=== PATIENT | male | born 1970 | race African-American/Black ===

== ENCOUNTER 2016-09-08 20:35 | Emergency (ER) | payer MEDICAID ==
[~2016-09-08] VITALS: Ht 177.8 cm; Wt 100.0 kg
[~2016-09-08 20:35] MED LIST: OLAN10TA3 PO; SERT50TA12 PO
[2016-09-09 02:03] VITALS: BP 137/76
== END 2016-09-09 02:07 | disposition home or self-care (01) ==
LOC: EDBD → EMS 20:38 → EDBD 20:38 → EEVIPCON 20:38 → EMS 09-09 02:07
DX: F20.9 Schizophrenia, unspecified (principal); F17.210 Nicotine dependence, cigarettes, uncomplicated; F19.90 Other psychoactive substance use, unspecified, uncomplicated; F12.90 Cannabis use, unspecified, uncomplicated; Z59.0 Homelessness
CPT/HCPCS: 93005; 99284; 99406

== ENCOUNTER 2016-09-09 04:39 | Inpatient (IN) | payer MEDICAID ==
[~2016-09-09] VITALS: Ht 185.4 cm; Wt 78.7 kg
[2016-09-09] MEDS ORDERED: DiphenhydrAMINE HCL 50 MG/ML VIAL IM ONE (05:00)
[2016-09-09] MEDS ORDERED: LORazepam 2 MG/ML VIAL IM ONE (05:00)
[2016-09-09] MEDS ORDERED: HALOPERIDOL LACTATE 5 MG/ML VIAL IM ONE (05:00)
[2016-09-09 05:45] LABS: BASOPHILS # (AUTO) 0.02 K/uL (0.00-0.20); BASOPHILS % (AUTO) 0.4 % (0.0-2.0); EOSINOPHILS # (AUTO) 0.06 K/uL (0.00-0.70); EOSINOPHILS % (AUTO) 1.19 % (1.0-6.0); HEMATOCRIT 39.3 % (41-53); HEMOGLOBIN 13.4 g/dL (13.5-17.5); LYMPHOCYTES # (AUTO) 1.1 K/uL (1.0-4.8); LYMPHOCYTES % (AUTO) 21.9 % (22.0-44.0); MEAN CORPUSCULAR HEMOGLOBIN 29.8 pg (26.0-34.0); MEAN CORPUSCULAR VOLUME 88 fL (80-100); MONOCYTES # (AUTO) 0.7 K/uL (0.1-1.0); MONOCYTES % (AUTO) 13.5 % (2.0-9.0); PLATELET COUNT (AUTO) 172 K/uL (150-450); RED BLOOD CELL COUNT(AUTO) 4.47 MIL/uL (4.50-5.90); RED CELL DISTRIBUTION WIDTH 14.3 % (11.5-14.5); WHITE BLOOD COUNT (AUTO) 4.8 K/uL (4.5-11.0)
[2016-09-09 06:25] LABS: ANION GAP 8 mmol/L (8-16); CALCIUM, TOTAL 9.1 mg/dL (8.8-10.5); CARBON DIOXIDE 30 mmol/L (22-29); CHLORIDE 105 mmol/L (98-107); CREATININE 1.36 mg/dL (0.60-1.30); GLOMERULAR FILTR. RATE CALC > 60 mL/min (>60); POTASSIUM 3.5 mmol/L (3.5-5.1); SODIUM SERUM 143 mmol/L (136-145); UREA NITROGEN, BLOOD 15 mg/dL (7-18)
[2016-09-09 06:31] LABS: ALANINE AMINOTRANSFERASE 40 U/L (12-78); ALBUMIN 3.8 g/dL (3.4-5.0); ASPARTATE AMINOTRANSFERASE 29 U/L (15-37); BILIRUBIN,TOTAL 0.5 mg/dL (0.1-1.0); TOTAL PROTEIN, SERUM 7.7 g/dL (6.4-8.2)
[2016-09-09] MEDS ORDERED: HALOPERIDOL 5 MG TABLET PO PRN (07:30)
[2016-09-09] MEDS ORDERED: ZOLPIDEM TARTRATE 10 MG TABLET PO PRN (07:30)
[2016-09-10 16:16] VITALS: BP 130/72
[2016-09-10] MEDS ORDERED: HALOPERIDOL LACTATE 5 MG/ML VIAL IM ONE (17:00)
[2016-09-10] MEDS ORDERED: DiphenhydrAMINE HCL 50 MG/ML VIAL IM ONE (17:00)
[2016-09-10] MEDS ORDERED: LORazepam 2 MG/ML VIAL IM ONE (17:00)
[2016-09-10] MEDS ORDERED: INFLUENZA VIRUS VACCINE QVS 2016-17 (3YR+)/PF 60 MCG/0.5 ML SYRINGE IM ONE (17:15)
[2016-09-11 08:28] VITALS: BP 112/76
[2016-09-11] MEDS ORDERED: IBUPROFEN 600 MG TABLET PO PRN (10:00)
[2016-09-11] MEDS ORDERED: BACITRACIN 28.4 GM OINTMENT TP PRN (10:00)
[2016-09-11] MEDS ORDERED: MAGNESIUM HYDROXIDE SUSPENSION 30 ML UDCUP PO PRN (10:00)
[2016-09-11] MEDS ORDERED: PETROLATUM,WHITE 71 GM JELLY TP PRN (10:00)
[2016-09-11] MEDS ORDERED: ACETAMINOPHEN 325 MG TABLET PO PRN (10:00)
[2016-09-11] MEDS ORDERED: MAG HYDROX/AL HYDROX/SIMETH ES 30 ML SUSPENSION UDCUP PO PRN (10:00)
[2016-09-11] MEDS ORDERED: ONDANSETRON HCL 4 MG TABLET PO PRN (10:00)
[2016-09-11] MEDS ORDERED: LOPERAMIDE HCL 2 MG CAPSULE PO PRN (10:00)
[2016-09-11] MEDS ORDERED: ALBUTEROL SULFATE HFA 90 MCG/PUFF 8 GM INHALER IH PRN (10:00)
[2016-09-11] MEDS ORDERED: BENZOCAINE/MENTHOL LOZENGE MM PRN (10:00)
[2016-09-11] MEDS ORDERED: CloNIDine HCL 0.1 MG TABLET PO PRN (10:00)
[2016-09-11 16:00] VITALS: BP 113/69
[2016-09-11] MEDS: LORazepam 2 MG TABLET PO PRN (17:12)
[2016-09-11] MEDS: RisperiDONE 2 MG TABLET PO SCH (17:12)
[2016-09-11] MEDS: DIVALPROEX SODIUM 500 MG DR TABLET PO SCH (17:12)
[2016-09-12 06:10] VITALS: BP 115/62
[2016-09-12] MEDS: DIVALPROEX SODIUM 500 MG DR TABLET PO SCH ×2 (09:57→17:02)
[2016-09-12] MEDS: RisperiDONE 2 MG TABLET PO SCH ×2 (09:57→17:02)
[2016-09-12] MEDS: LORazepam 2 MG TABLET PO PRN (09:57)
[2016-09-12 16:00] VITALS: BP 125/75
[2016-09-12] MEDS ORDERED: RISP2 PO (20:35)
[2016-09-12] MEDS ORDERED: DIVA500T35 PO (20:35)
[2016-09-13 07:05] VITALS: BP 118/72
[2016-09-13 08:15] VITALS: BP 101/61
[2016-09-13] MEDS: DIVALPROEX SODIUM 500 MG DR TABLET PO SCH (09:58)
[2016-09-13] MEDS: RisperiDONE 2 MG TABLET PO SCH (09:58)
== END 2016-09-13 13:00 | disposition home or self-care (01) | DRG 750 ==
LOC: EMS 04:41 → EDBD 04:41 → B3A 09-10 13:42
PROVIDERS: ADMIT Psychiatry & Neurology Psychiatry; ATTEND Psychiatry & Neurology Psychiatry
DX: F20.0 Paranoid schizophrenia (principal); J44.9 Chronic obstructive pulmonary disease, unspecified; R45.851 Suicidal ideations; F25.9 Schizoaffective disorder, unspecified; F15.10 Other stimulant abuse, uncomplicated; F12.10 Cannabis abuse, uncomplicated; F19.10 Other psychoactive substance abuse, uncomplicated; F10.10 Alcohol abuse, uncomplicated; F17.210 Nicotine dependence, cigarettes, uncomplicated; G47.00 Insomnia, unspecified; K59.00 Constipation, unspecified; Z28.21 Immunization not carried out because of patient refusal; Z59.0 Homelessness; Z71.6 Tobacco abuse counseling
CPT/HCPCS: 96372; 99291; G0480; J1200; J1630; J2060; J3535

== ENCOUNTER 2017-06-08 18:25 | Inpatient (IN) | payer MEDICAID ==
[~2017-06-08] VITALS: Ht 198.1 cm; Wt 78.2 kg
[~2017-06-08 18:25] MED LIST changes: +DIVA500T35 PO; +RISP2 PO
[2017-06-08] MEDS ORDERED: HALOPERIDOL 5 MG TABLET PO PRN (19:00)
[2017-06-08] MEDS ORDERED: ZOLPIDEM TARTRATE 10 MG TABLET PO PRN (19:00)
[2017-06-08 19:20] VITALS: BP 137/85
[2017-06-08] MEDS ORDERED: INFLUENZA VIRUS VACCINE QVS 2017-18 (3YR+)/PF 60 MCG/0.5 ML SYRINGE IM ONE (19:45)
[2017-06-08] MEDS ORDERED: PNEUMOCOCCAL VACCINE POLYVALENT 0.5 ML VIAL [PPSV23] IM ONE (19:45)
[2017-06-08] MEDS: DIVALPROEX SODIUM 500 MG DR TABLET PO SCH (20:59)
[2017-06-08] MEDS: OLANZapine 10 MG TABLET PO SCH (20:59)
[2017-06-09 06:38] VITALS: BP 111/64
[2017-06-09] MEDS: SERTRALINE HCL 50 MG TABLET PO SCH (08:13)
[2017-06-09] MEDS: DIVALPROEX SODIUM 500 MG DR TABLET PO SCH ×2 (08:13→20:29)
[2017-06-09] MEDS ORDERED: OLANZapine 10 MG TABLET PO SCH (09:00)
[2017-06-09] MEDS ORDERED: LOPERAMIDE HCL 2 MG CAPSULE PO PRN (14:00)
[2017-06-09] MEDS ORDERED: ONDANSETRON HCL 4 MG TABLET PO PRN (14:00)
[2017-06-09] MEDS ORDERED: BENZOCAINE/MENTHOL LOZENGE MM PRN (14:00)
[2017-06-09] MEDS ORDERED: IBUPROFEN 600 MG TABLET PO PRN (14:00)
[2017-06-09] MEDS ORDERED: MAG HYDROX/AL HYDROX/SIMETH ES 30 ML SUSPENSION UDCUP PO PRN (14:00)
[2017-06-09] MEDS ORDERED: MAGNESIUM HYDROXIDE SUSPENSION 30 ML UDCUP PO PRN (14:00)
[2017-06-09] MEDS ORDERED: ACETAMINOPHEN 325 MG TABLET PO PRN (14:00)
[2017-06-09] MEDS ORDERED: ALBUTEROL SULFATE HFA 90 MCG/PUFF 8 GM INHALER IH PRN (14:00)
[2017-06-09] MEDS ORDERED: CloNIDine HCL 0.1 MG TABLET PO PRN (14:00)
[2017-06-09] MEDS ORDERED: BACITRACIN 28.4 GM OINTMENT TP PRN (14:00)
[2017-06-09] MEDS ORDERED: PETROLATUM,WHITE 71 GM JELLY TP PRN (14:00)
[2017-06-09 16:27] VITALS: BP 105/64
[2017-06-09] MEDS: OLANZapine 10 MG TABLET PO SCH (20:29)
[2017-06-10 06:39] VITALS: BP 116/77
[2017-06-10] MEDS: DIVALPROEX SODIUM 500 MG DR TABLET PO SCH ×2 (09:12→20:35)
[2017-06-10] MEDS: SERTRALINE HCL 50 MG TABLET PO SCH (09:12)
[2017-06-10] MEDS: OLANZapine 5 MG TABLET PO SCH (09:14)
[2017-06-10 16:00] VITALS: BP 114/70
[2017-06-10] MEDS: LORazepam 2 MG TABLET PO PRN (16:28)
[2017-06-10] MEDS: OLANZapine 10 MG TABLET PO SCH (20:36)
[2017-06-11] MEDS: SERTRALINE HCL 50 MG TABLET PO SCH (08:57)
[2017-06-11] MEDS: OLANZapine 5 MG TABLET PO SCH (08:57)
[2017-06-11] MEDS: DIVALPROEX SODIUM 500 MG DR TABLET PO SCH ×2 (08:58→20:46)
[2017-06-11] MEDS: LORazepam 2 MG TABLET PO PRN ×2 (08:58→20:46)
[2017-06-11 16:00] VITALS: BP 123/66
[2017-06-11] MEDS: OLANZapine 10 MG TABLET PO SCH (20:46)
[2017-06-12 06:35] VITALS: BP 107/66
[2017-06-12 08:12] VITALS: BP 116/72
[2017-06-12] MEDS: DIVALPROEX SODIUM 500 MG DR TABLET PO SCH ×2 (09:23→20:34)
[2017-06-12] MEDS: OLANZapine 5 MG TABLET PO SCH (09:23)
[2017-06-12] MEDS: SERTRALINE HCL 50 MG TABLET PO SCH (09:23)
[2017-06-12 16:00] VITALS: BP 110/65
[2017-06-12] MEDS: OLANZapine 10 MG TABLET PO SCH (20:34)
[2017-06-12] MEDS: LORazepam 2 MG TABLET PO PRN (20:35)
[2017-06-13 05:33] VITALS: BP 115/71
[2017-06-13] MEDS: DIVALPROEX SODIUM 500 MG DR TABLET PO SCH ×2 (09:05→20:20)
[2017-06-13] MEDS: SERTRALINE HCL 50 MG TABLET PO SCH (09:05)
[2017-06-13] MEDS: OLANZapine 5 MG TABLET PO SCH (09:05)
[2017-06-13 09:11] VITALS: BP 108/69
[2017-06-13] MEDS ORDERED: OLAN5TAB2 PO (11:28)
[2017-06-13 16:52] VITALS: BP 109/70
[2017-06-13] MEDS: OLANZapine 10 MG TABLET PO SCH (20:20)
[2017-06-14 06:46] VITALS: BP 117/73
== END 2017-06-14 07:15 | disposition home or self-care (01) | DRG 750 ==
LOC: B3A 18:51
DX: F25.0 Schizoaffective disorder, bipolar type (principal); R45.851 Suicidal ideations; Z59.0 Homelessness; F15.10 Other stimulant abuse, uncomplicated; Z28.21 Immunization not carried out because of patient refusal; F17.200 Nicotine dependence, unspecified, uncomplicated; G47.00 Insomnia, unspecified; J44.9 Chronic obstructive pulmonary disease, unspecified; K59.00 Constipation, unspecified; Z91.5 Personal history of self-harm; Z56.0 Unemployment, unspecified; Z71.51 Drug abuse counseling and surveillance of drug abuser; Z71.6 Tobacco abuse counseling; Z72.89 Other problems related to lifestyle; Z71.41 Alcohol abuse counseling and surveillance of alcoholic; Z79.899 Other long term (current) drug therapy
CPT/HCPCS: 90471

== ENCOUNTER 2017-07-07 01:32 | Inpatient (IN) | payer MEDICAID ==
[~2017-07-07] VITALS: Ht 195.6 cm; Wt 84.3 kg
[~2017-07-07 01:32] MED LIST changes: +OLAN5TAB2 PO; -RISP2 PO
[2017-07-07] MEDS ORDERED: LORazepam 2 MG TABLET PO PRN (01:45)
[2017-07-07] MEDS ORDERED: OLANZapine 5 MG RAPDIS TABLET PO PRN (01:45)
[2017-07-07] MEDS ORDERED: ZOLPIDEM TARTRATE 10 MG TABLET PO PRN (01:45)
[2017-07-07 02:58] VITALS: BP 120/81
[2017-07-07] MEDS ORDERED: INFLUENZA VIRUS VACCINE QVS 2017-18 (3YR+)/PF 60 MCG/0.5 ML SYRINGE IM ONE (03:15)
[2017-07-07] MEDS ORDERED: PNEUMOCOCCAL VACCINE POLYVALENT 0.5 ML VIAL [PPSV23] IM ONE (03:15)
[2017-07-07] MEDS ORDERED: LOPERAMIDE HCL 2 MG CAPSULE PO PRN (07:15)
[2017-07-07] MEDS ORDERED: BACITRACIN 28.4 GM OINTMENT TP PRN (07:15)
[2017-07-07] MEDS ORDERED: ALBUTEROL SULFATE HFA 90 MCG/PUFF 8 GM INHALER IH PRN (07:15)
[2017-07-07] MEDS ORDERED: IBUPROFEN 600 MG TABLET PO PRN (07:15)
[2017-07-07] MEDS ORDERED: CloNIDine HCL 0.1 MG TABLET PO PRN (07:15)
[2017-07-07] MEDS ORDERED: BENZOCAINE/MENTHOL LOZENGE MM PRN (07:15)
[2017-07-07] MEDS ORDERED: ACETAMINOPHEN 325 MG TABLET PO PRN (07:15)
[2017-07-07] MEDS ORDERED: PETROLATUM,WHITE 71 GM JELLY TP PRN (07:15)
[2017-07-07] MEDS ORDERED: MAG HYDROX/AL HYDROX/SIMETH ES 30 ML SUSPENSION UDCUP PO PRN (07:15)
[2017-07-07] MEDS ORDERED: MAGNESIUM HYDROXIDE SUSPENSION 30 ML UDCUP PO PRN (07:15)
[2017-07-07] MEDS ORDERED: ONDANSETRON HCL 4 MG TABLET PO PRN (07:15)
[2017-07-07 08:37] VITALS: BP 117/70
[2017-07-07 18:00] VITALS: BP 111/60
[2017-07-07] MEDS: OLANZapine 10 MG TABLET PO SCH (20:25)
[2017-07-07] MEDS: DIVALPROEX SODIUM 500 MG DR TABLET PO SCH (20:25)
[2017-07-08 08:48] VITALS: BP 109/69
[2017-07-08] MEDS: OLANZapine 5 MG TABLET PO SCH (09:19)
[2017-07-08] MEDS: SERTRALINE HCL 50 MG TABLET PO SCH (09:19)
[2017-07-08] MEDS: DIVALPROEX SODIUM 500 MG DR TABLET PO SCH ×2 (09:19→20:23)
[2017-07-08 16:29] VITALS: BP 104/60
[2017-07-08] MEDS: OLANZapine 10 MG TABLET PO SCH (20:23)
[2017-07-09 03:58] VITALS: BP 100/60
[2017-07-09 08:41] VITALS: BP 116/60
[2017-07-09] MEDS: SERTRALINE HCL 50 MG TABLET PO SCH (09:31)
[2017-07-09] MEDS: DIVALPROEX SODIUM 500 MG DR TABLET PO SCH ×2 (09:31→20:32)
[2017-07-09] MEDS: OLANZapine 5 MG TABLET PO SCH (09:32)
[2017-07-09 16:52] VITALS: BP 114/57
[2017-07-09] MEDS: OLANZapine 10 MG TABLET PO SCH (20:32)
[2017-07-10 09:17] VITALS: BP 139/94
[2017-07-10] MEDS: OLANZapine 5 MG TABLET PO SCH (09:28)
[2017-07-10] MEDS: SERTRALINE HCL 50 MG TABLET PO SCH (09:28)
[2017-07-10] MEDS: DIVALPROEX SODIUM 500 MG DR TABLET PO SCH ×2 (09:28→20:32)
[2017-07-10 16:00] VITALS: BP 114/62
[2017-07-10] MEDS: OLANZapine 10 MG TABLET PO SCH (20:32)
[2017-07-11] MEDS: DIVALPROEX SODIUM 500 MG DR TABLET PO SCH (09:34)
[2017-07-11] MEDS: SERTRALINE HCL 50 MG TABLET PO SCH (09:34)
[2017-07-11] MEDS: OLANZapine 5 MG TABLET PO SCH (09:34)
== END 2017-07-11 13:57 | disposition home or self-care (01) | DRG 750 ==
LOC: B2S 02:00 → EDSTATUS 02:23
PROVIDERS: ADMIT Psychiatry & Neurology Psychiatry
DX: F25.1 Schizoaffective disorder, depressive type (principal); R45.851 Suicidal ideations; F15.10 Other stimulant abuse, uncomplicated; F12.90 Cannabis use, unspecified, uncomplicated; F17.200 Nicotine dependence, unspecified, uncomplicated; J44.9 Chronic obstructive pulmonary disease, unspecified; K59.00 Constipation, unspecified; Z71.6 Tobacco abuse counseling; Z79.899 Other long term (current) drug therapy; Z72.89 Other problems related to lifestyle; Z71.41 Alcohol abuse counseling and surveillance of alcoholic
CPT/HCPCS: 87081

== ENCOUNTER 2017-08-08 04:25 | Inpatient (IN) | payer MEDICAID ==
[~2017-08-08] VITALS: Ht 185.4 cm; Wt 76.7 kg
[~2017-08-08 04:25] MED LIST changes: +OLANZapine 5 MG RAPDIS TABLET PO PRN; +ZOLPIDEM TARTRATE 10 MG TABLET PO PRN
[2017-08-08] MEDS ORDERED: IBUPROFEN 600 MG TABLET PO PRN (10:00)
[2017-08-08] MEDS ORDERED: ONDANSETRON HCL 4 MG TABLET PO PRN (10:00)
[2017-08-08] MEDS ORDERED: MAG HYDROX/AL HYDROX/SIMETH ES 30 ML SUSPENSION UDCUP PO PRN (10:00)
[2017-08-08] MEDS ORDERED: ALBUTEROL SULFATE HFA 90 MCG/PUFF 8 GM INHALER IH PRN (10:00)
[2017-08-08] MEDS ORDERED: LOPERAMIDE HCL 2 MG CAPSULE PO PRN (10:00)
[2017-08-08] MEDS ORDERED: BACITRACIN 28.4 GM OINTMENT TP PRN (10:00)
[2017-08-08] MEDS ORDERED: MAGNESIUM HYDROXIDE SUSPENSION 30 ML UDCUP PO PRN (10:00)
[2017-08-08] MEDS ORDERED: PETROLATUM,WHITE 71 GM JELLY TP PRN (10:00)
[2017-08-08] MEDS ORDERED: CloNIDine HCL 0.1 MG TABLET PO PRN (10:00)
[2017-08-08] MEDS ORDERED: BENZOCAINE/MENTHOL LOZENGE MM PRN (10:00)
[2017-08-08] MEDS ORDERED: ACETAMINOPHEN 325 MG TABLET PO PRN (10:00)
[2017-08-08] MEDS ORDERED: BENZOCAINE/MENTHOL LOZENGE [8 LOZENGES/PACKET] MM PRN (10:07)
[2017-08-08] MEDS: LORazepam 2 MG TABLET PO PRN (10:09)
[2017-08-08 10:37] VITALS: BP 117/82
[2017-08-08 10:51] VITALS: BP 117/82
[2017-08-08] MEDS ORDERED: PNEUMOCOCCAL VACCINE POLYVALENT 0.5 ML VIAL [PPSV23] IM ONE (11:15)
[2017-08-08] MEDS ORDERED: INFLUENZA VIRUS VACCINE QVS 2017-18 (3YR+)/PF 60 MCG/0.5 ML SYRINGE IM ONE (11:15)
[2017-08-08 18:30] VITALS: BP 110/60
[2017-08-08] MEDS: DIVALPROEX SODIUM 500 MG DR TABLET PO SCH (20:52)
[2017-08-08] MEDS: OLANZapine 10 MG TABLET PO SCH (20:52)
[2017-08-09 01:17] VITALS: BP 120/73
[2017-08-09] MEDS: OLANZapine 5 MG TABLET PO SCH (08:47)
[2017-08-09] MEDS: SERTRALINE HCL 50 MG TABLET PO SCH (08:47)
[2017-08-09] MEDS: DIVALPROEX SODIUM 500 MG DR TABLET PO SCH ×2 (08:47→20:48)
[2017-08-09 16:26] VITALS: BP 109/65
[2017-08-09] MEDS: OLANZapine 10 MG TABLET PO SCH (20:48)
[2017-08-10 06:34] VITALS: BP 112/66
[2017-08-10 09:02] VITALS: BP 101/52
[2017-08-10] MEDS: SERTRALINE HCL 50 MG TABLET PO SCH (09:54)
[2017-08-10] MEDS: DIVALPROEX SODIUM 500 MG DR TABLET PO SCH ×2 (09:54→20:56)
[2017-08-10] MEDS: LORazepam 2 MG TABLET PO PRN (09:55)
[2017-08-10] MEDS: OLANZapine 5 MG TABLET PO SCH (09:57)
[2017-08-10] MEDS: OLANZapine 10 MG TABLET PO SCH (20:56)
[2017-08-11 08:17] VITALS: BP 110/63
[2017-08-11] MEDS: SERTRALINE HCL 50 MG TABLET PO SCH (09:00)
[2017-08-11] MEDS: OLANZapine 5 MG TABLET PO SCH (09:00)
[2017-08-11] MEDS: DIVALPROEX SODIUM 500 MG DR TABLET PO SCH ×2 (09:00→20:11)
[2017-08-11 18:44] VITALS: BP 118/88
[2017-08-11] MEDS: OLANZapine 10 MG TABLET PO SCH (20:11)
[2017-08-12 09:10] VITALS: BP 120/65
[2017-08-12] MEDS: SERTRALINE HCL 50 MG TABLET PO SCH (10:17)
[2017-08-12] MEDS: DIVALPROEX SODIUM 500 MG DR TABLET PO SCH ×2 (10:17→20:23)
[2017-08-12] MEDS: OLANZapine 5 MG TABLET PO SCH (10:20)
[2017-08-12 16:15] VITALS: BP 118/65
[2017-08-12] MEDS: OLANZapine 10 MG TABLET PO SCH (20:23)
[2017-08-13 08:54] VITALS: BP 119/73
[2017-08-13] MEDS: DIVALPROEX SODIUM 500 MG DR TABLET PO SCH ×2 (09:00→21:01)
[2017-08-13] MEDS: SERTRALINE HCL 50 MG TABLET PO SCH (09:00)
[2017-08-13] MEDS: OLANZapine 5 MG TABLET PO SCH (09:00)
[2017-08-13 16:00] VITALS: BP 128/78
[2017-08-13] MEDS: OLANZapine 10 MG TABLET PO SCH (21:00)
[2017-08-14 06:17] VITALS: BP 115/76
[2017-08-14 08:49] VITALS: BP 111/56
[2017-08-14] MEDS: DIVALPROEX SODIUM 500 MG DR TABLET PO SCH ×2 (08:53→20:25)
[2017-08-14] MEDS: OLANZapine 5 MG TABLET PO SCH (08:53)
[2017-08-14] MEDS: SERTRALINE HCL 50 MG TABLET PO SCH (08:53)
[2017-08-14 16:00] VITALS: BP 120/64
[2017-08-14] MEDS: OLANZapine 10 MG TABLET PO SCH (20:25)
[2017-08-15 06:45] VITALS: BP 110/60
[2017-08-15 08:51] VITALS: BP 112/61
[2017-08-15] MEDS: SERTRALINE HCL 50 MG TABLET PO SCH (09:44)
[2017-08-15] MEDS: OLANZapine 5 MG TABLET PO SCH (09:44)
[2017-08-15] MEDS: DIVALPROEX SODIUM 500 MG DR TABLET PO SCH (09:44)
== END 2017-08-15 10:55 | disposition home or self-care (01) | DRG 750 ==
LOC: EMS 04:26 → AHU 08:52 → B2S 17:30
DX: F25.1 Schizoaffective disorder, depressive type (principal); F23 Brief psychotic disorder; R45.851 Suicidal ideations; F15.10 Other stimulant abuse, uncomplicated; F17.200 Nicotine dependence, unspecified, uncomplicated; F12.20 Cannabis dependence, uncomplicated; F41.9 Anxiety disorder, unspecified; K59.00 Constipation, unspecified; R03.0 Elevated blood-pressure reading, without diagnosis of hypertension; F17.210 Nicotine dependence, cigarettes, uncomplicated; G47.00 Insomnia, unspecified; J44.9 Chronic obstructive pulmonary disease, unspecified; Z59.0 Homelessness; Z91.5 Personal history of self-harm; Z28.21 Immunization not carried out because of patient refusal; Z79.899 Other long term (current) drug therapy; Z72.89 Other problems related to lifestyle; Z71.6 Tobacco abuse counseling; Z71.51 Drug abuse counseling and surveillance of drug abuser; Z71.41 Alcohol abuse counseling and surveillance of alcoholic
CPT/HCPCS: 90471; 99285

== ENCOUNTER 2017-10-19 20:33 | Inpatient (IN) | payer MEDICAID ==
[~2017-10-19] VITALS: Ht 185.4 cm; Wt 80.3 kg
[~2017-10-19 20:33] MED LIST changes: -OLANZapine 5 MG RAPDIS TABLET PO PRN; -ZOLPIDEM TARTRATE 10 MG TABLET PO PRN
[2017-10-19] MEDS ORDERED: ZOLPIDEM TARTRATE 10 MG TABLET PO PRN (21:45)
[2017-10-19] MEDS ORDERED: LORazepam 2 MG TABLET PO PRN (21:45)
[2017-10-19 22:00] VITALS: BP 120/76
[2017-10-19 22:07] VITALS: BP 143/82
[2017-10-19] MEDS ORDERED: PNEUMOCOCCAL VACCINE POLYVALENT 0.5 ML VIAL [PPSV23] IM ONE (22:15)
[2017-10-19] MEDS ORDERED: INFLUENZA VIRUS VACCINE QVS 2017-18 (3YR+)/PF 60 MCG/0.5 ML SYRINGE IM ONE (22:15)
[2017-10-19] MEDS: HALOPERIDOL 5 MG TABLET PO PRN (22:53)
[2017-10-20 01:15] VITALS: BP 112/60
[2017-10-20] MEDS ORDERED: LOPERAMIDE HCL 2 MG CAPSULE PO PRN (07:30)
[2017-10-20] MEDS ORDERED: MAGNESIUM HYDROXIDE SUSPENSION 30 ML UDCUP PO PRN (07:30)
[2017-10-20] MEDS ORDERED: ACETAMINOPHEN 325 MG TABLET PO PRN (07:30)
[2017-10-20] MEDS ORDERED: BENZOCAINE/MENTHOL LOZENGE MM PRN (07:30)
[2017-10-20] MEDS ORDERED: MAG HYDROX/AL HYDROX/SIMETH ES 30 ML SUSPENSION UDCUP PO PRN (07:30)
[2017-10-20] MEDS ORDERED: PETROLATUM,WHITE 71 GM JELLY TP PRN (07:30)
[2017-10-20] MEDS ORDERED: IBUPROFEN 600 MG TABLET PO PRN (07:30)
[2017-10-20] MEDS ORDERED: ONDANSETRON HCL 4 MG TABLET PO PRN (07:30)
[2017-10-20] MEDS ORDERED: BACITRACIN 28.4 GM OINTMENT TP PRN (07:30)
[2017-10-20] MEDS ORDERED: CloNIDine HCL 0.1 MG TABLET PO PRN (07:30)
[2017-10-20] MEDS ORDERED: ALBUTEROL SULFATE HFA 90 MCG/PUFF 8 GM INHALER IH PRN (07:30)
[2017-10-20 08:34] VITALS: BP 105/67
[2017-10-20 16:26] VITALS: BP 111/73
[2017-10-20] MEDS: HALOPERIDOL 5 MG TABLET PO PRN (16:28)
[2017-10-20] MEDS ORDERED: HALOPERIDOL LACTATE 5 MG/ML VIAL ONE (17:35)
[2017-10-20] MEDS ORDERED: LORazepam 2 MG/ML VIAL ONE (17:35)
[2017-10-20] MEDS ORDERED: DiphenhydrAMINE HCL 50 MG/ML VIAL ONE (17:35)
[2017-10-20] MEDS ORDERED: LORazepam 2 MG/ML VIAL IM ONE (17:45)
[2017-10-20] MEDS ORDERED: HALOPERIDOL LACTATE 5 MG/ML VIAL IM ONE (17:45)
[2017-10-20] MEDS ORDERED: DiphenhydrAMINE HCL 50 MG/ML VIAL IM ONE (17:45)
[2017-10-20] MEDS: OLANZapine 10 MG TABLET PO SCH (21:24)
[2017-10-21 03:02] VITALS: BP 120/81
[2017-10-21 08:26] VITALS: BP 113/76
[2017-10-21] MEDS: SERTRALINE HCL 100 MG TABLET PO SCH (09:00)
[2017-10-21] MEDS: OLANZapine 10 MG TABLET PO SCH ×2 (09:00→20:30)
[2017-10-21 16:16] VITALS: BP 123/71
[2017-10-22 05:41] VITALS: BP 108/58
[2017-10-22 08:27] VITALS: BP 104/60
[2017-10-22] MEDS: OLANZapine 10 MG TABLET PO SCH (09:01)
[2017-10-22] MEDS: SERTRALINE HCL 100 MG TABLET PO SCH (09:01)
[2017-10-22] MEDS ORDERED: SERT100T12 PO (13:22)
[2017-10-22] MEDS ORDERED: OLAN10TA3 PO (13:22)
== END 2017-10-22 14:30 | disposition home or self-care (01) | DRG 750 ==
LOC: B2S 21:20 → EDSTATUS 21:43
PROVIDERS: ADMIT Psychiatry & Neurology Psychiatry; ATTEND Psychiatry & Neurology Psychiatry
DX: F25.0 Schizoaffective disorder, bipolar type (principal); R45.851 Suicidal ideations; Z91.19 Patient's noncompliance with other medical treatment and regimen; E78.5 Hyperlipidemia, unspecified; F12.90 Cannabis use, unspecified, uncomplicated; F17.210 Nicotine dependence, cigarettes, uncomplicated; F41.9 Anxiety disorder, unspecified; F19.20 Other psychoactive substance dependence, uncomplicated; G47.00 Insomnia, unspecified; J44.9 Chronic obstructive pulmonary disease, unspecified; K21.9 Gastro-esophageal reflux disease without esophagitis; Z59.0 Homelessness; Z91.5 Personal history of self-harm; Z28.21 Immunization not carried out because of patient refusal; Z71.6 Tobacco abuse counseling; Z71.51 Drug abuse counseling and surveillance of drug abuser; Z79.899 Other long term (current) drug therapy
CPT/HCPCS: J1200; J1630; J2060

== ENCOUNTER 2018-03-25 22:35 | Inpatient (IN) | payer MEDICAID ==
[~2018-03-25 22:35] MED LIST changes: -DIVA500T35 PO; -OLAN5TAB2 PO; +SERT100T12 PO; -SERT50TA12 PO
[2018-03-25] MEDS ORDERED: LORazepam 2 MG/ML VIAL IM ONE (23:30)
[2018-03-25] MEDS ORDERED: ZOLPIDEM TARTRATE 10 MG TABLET PO PRN (23:30)
[2018-03-25] MEDS ORDERED: HALOPERIDOL LACTATE 5 MG/ML VIAL IM ONE (23:30)
[2018-03-25] MEDS ORDERED: DiphenhydrAMINE HCL 50 MG/ML VIAL IM ONE (23:30)
[2018-03-25] MEDS ORDERED: HALOPERIDOL 5 MG TABLET PO PRN (23:30)
[2018-03-25] MEDS ORDERED: LORazepam 2 MG TABLET PO PRN (23:30)
[2018-03-25] MEDS ORDERED: HALOPERIDOL LACTATE 5 MG/ML VIAL ONE (23:31)
[2018-03-25] MEDS ORDERED: LORazepam 2 MG/ML VIAL ONE (23:31)
[2018-03-25] MEDS ORDERED: DiphenhydrAMINE HCL 50 MG/ML VIAL ONE (23:31)
[2018-03-26] MEDS ORDERED: PNEUMOCOCCAL VACCINE POLYVALENT 0.5 ML VIAL [PPSV23] IM ONE (00:15)
[2018-03-26 00:36] VITALS: BP 122/72
[2018-03-26 08:09] VITALS: BP 120/64
[2018-03-26 16:00] VITALS: BP 116/71
[2018-03-26] MEDS: OLANZapine 5 MG TABLET PO SCH (20:56)
[2018-03-27 06:33] VITALS: BP 107/67
[2018-03-27 08:09] VITALS: BP 137/72
[2018-03-27] MEDS: OLANZapine 5 MG TABLET PO SCH ×2 (08:56→20:19)
[2018-03-27] MEDS: SERTRALINE HCL 50 MG TABLET PO SCH (09:00)
[2018-03-27 16:07] VITALS: BP 130/70
[2018-03-28 06:42] VITALS: BP 109/63
[2018-03-28 08:08] VITALS: BP 112/74
[2018-03-28] MEDS: OLANZapine 5 MG TABLET PO SCH ×2 (09:11→20:19)
[2018-03-28] MEDS: SERTRALINE HCL 50 MG TABLET PO SCH (09:11)
[2018-03-28 16:28] VITALS: BP 109/72
[2018-03-29 06:18] VITALS: BP 112/68
[2018-03-29 08:00] VITALS: BP 116/69
[2018-03-29] MEDS: OLANZapine 5 MG TABLET PO SCH (08:47)
[2018-03-29] MEDS: SERTRALINE HCL 50 MG TABLET PO SCH (08:47)
[2018-03-29] MEDS ORDERED: OLANZapine 5 MG TABLET PO ONE (10:15)
[2018-03-29 16:00] VITALS: BP 128/65
[2018-03-29] MEDS: OLANZapine 10 MG TABLET PO SCH (20:38)
[2018-03-30 06:30] VITALS: BP 119/73
[2018-03-30 08:11] LABS: BASOPHILS % (AUTO) 0.6 % (0.0-2.0); HEMATOCRIT 42.9 % (41-53); HEMOGLOBIN 14.6 g/dL (13.5-17.5); LYMPHOCYTES # (AUTO) 1.9 K/uL (1.0-4.8); LYMPHOCYTES % (AUTO) 29.5 % (22.0-44.0); MEAN CORPUSCULAR HEMOGLOBIN 29.7 pg (26.0-34.0); MEAN CORPUSCULAR HGB CONC 34.1 G/dL (31.0-37.0); MEAN CORPUSCULAR VOLUME 87 fL (80-100); MONOCYTES # (AUTO) 0.5 K/uL (0.1-1.0); MONOCYTES % (AUTO) 7.2 % (2.0-9.0); NEUTROPHILS % (AUTO) 60.7 % (40.0-70.0); PLATELET COUNT (AUTO) 208 K/uL (150-450); RED BLOOD CELL COUNT(AUTO) 4.92 MIL/uL (4.50-5.90); RED CELL DISTRIBUTION WIDTH 13.6 % (11.5-14.5)
[2018-03-30 08:16] LABS: HEMOGLOBIN A1C 5.3 % (4.5-6.2)
[2018-03-30 08:25] VITALS: BP 116/67
[2018-03-30 08:32] LABS: ALANINE AMINOTRANSFERASE 34 U/L (12-78); ALBUMIN 3.6 g/dL (3.4-5.0); ALKALINE PHOSPHATASE 79 U/L (46-116); ANION GAP 5 mmol/L (8-16); ASPARTATE AMINOTRANSFERASE 25 U/L (15-37); BILIRUBIN,TOTAL 0.4 mg/dL (0.1-1.0); CALCIUM, TOTAL 9.4 mg/dL (8.8-10.5); CARBON DIOXIDE 29 mmol/L (22-29); CHLORIDE 104 mmol/L (98-107); CHOL/HDL RATIO 3.5 (4.2-7.3); CHOLESTEROL 191 mg/dL (131-200); FREE T4 (FREE THYROXINE) 0.74 ng/dL (0.76-1.46); GLOMERULAR FILTR. RATE CALC > 60 mL/min (>60); GLUCOSE,RANDOM 98 mg/dL (70-110); HDL CHOLESTEROL 55 mg/dL (40-60); LDL CHOL (CALC.) 110 mg/dL (0-130); POTASSIUM 4.2 mmol/L (3.5-5.1); SODIUM SERUM 138 mmol/L (136-145); THYROID STIMULATING HORMONE 0.86 uIU/mL (0.36-3.74); TOTAL PROTEIN, SERUM 7.9 g/dL (6.4-8.2); TRIGLYCERIDES 128 mg/dL (15-150); UREA NITROGEN, BLOOD 10 mg/dL (7-18)
[2018-03-30] MEDS: SERTRALINE HCL 50 MG TABLET PO SCH (08:35)
[2018-03-30] MEDS: OLANZapine 10 MG TABLET PO SCH ×2 (08:35→20:34)
[2018-03-30 17:16] VITALS: BP 122/75
[2018-03-31 06:37] VITALS: BP 112/63
[2018-03-31 08:11] VITALS: BP 128/78
[2018-03-31] MEDS: SERTRALINE HCL 50 MG TABLET PO SCH (08:56)
[2018-03-31] MEDS: OLANZapine 10 MG TABLET PO SCH ×2 (08:57→20:48)
[2018-03-31] MEDS ORDERED: TraMADol HCL 50 MG TABLET PO PRN (10:00)
[2018-03-31 10:07] VITALS: BP 118/65
[2018-03-31 11:07] VITALS: BP 112/64
[2018-03-31 16:00] VITALS: BP 106/66
[2018-04-01 08:11] VITALS: BP 124/72
[2018-04-01] MEDS: OLANZapine 10 MG TABLET PO SCH ×2 (09:56→20:07)
[2018-04-01] MEDS: SERTRALINE HCL 50 MG TABLET PO SCH (09:56)
[2018-04-01 16:14] VITALS: BP 129/75
[2018-04-02 04:26] VITALS: BP 126/67
[2018-04-02 08:09] VITALS: BP 140/90
[2018-04-02] MEDS: SERTRALINE HCL 50 MG TABLET PO SCH (08:45)
[2018-04-02] MEDS: OLANZapine 10 MG TABLET PO SCH ×2 (08:45→20:52)
[2018-04-02] MEDS ORDERED: SERT50TA12 PO (13:58)
[2018-04-02] MEDS ORDERED: OLAN10TA20 PO (13:58)
[2018-04-02 16:00] VITALS: BP 136/73
[2018-04-03 07:17] VITALS: BP 121/63
[2018-04-03 08:56] VITALS: BP 128/72
[2018-04-03] MEDS: OLANZapine 10 MG TABLET PO SCH (09:00)
[2018-04-03] MEDS: SERTRALINE HCL 50 MG TABLET PO SCH (09:00)
== END 2018-04-03 11:45 | disposition home or self-care (01) | DRG 750 ==
LOC: EDSTATUS 22:49 → B3A 23:26
DX: F25.1 Schizoaffective disorder, depressive type (principal); R45.851 Suicidal ideations; Z59.0 Homelessness; D64.9 Anemia, unspecified; F15.10 Other stimulant abuse, uncomplicated; J44.9 Chronic obstructive pulmonary disease, unspecified; K21.9 Gastro-esophageal reflux disease without esophagitis; Z91.5 Personal history of self-harm; Z79.899 Other long term (current) drug therapy; G47.00 Insomnia, unspecified; F41.9 Anxiety disorder, unspecified
CPT/HCPCS: 83036; 84439; 84443; J1200; J1630; J2060

== ENCOUNTER 2018-04-29 20:49 | Emergency (ER) | payer MEDICAID ==
[~2018-04-29] VITALS: Ht 182.9 cm; Wt 84.1 kg
[~2018-04-29 20:49] MED LIST changes: +OLAN10TA20 PO; -OLAN10TA3 PO; -SERT100T12 PO; +SERT50TA12 PO
[2018-04-29 23:30] VITALS: BP 138/88
== END 2018-04-30 01:29 | disposition home or self-care (01) ==
LOC: EMS 20:50
DX: F25.9 Schizoaffective disorder, unspecified (principal); F32.9 Major depressive disorder, single episode, unspecified; F15.10 Other stimulant abuse, uncomplicated; F17.210 Nicotine dependence, cigarettes, uncomplicated; F12.90 Cannabis use, unspecified, uncomplicated; F19.90 Other psychoactive substance use, unspecified, uncomplicated
CPT/HCPCS: 99285

== ENCOUNTER 2018-05-15 17:42 | Inpatient (IN) | payer MEDICAID ==
[~2018-05-15] VITALS: Ht 185.4 cm; Wt 78.0 kg
[2018-05-15] MEDS ORDERED: HALOPERIDOL 5 MG TABLET PO PRN (18:15)
[2018-05-15] MEDS ORDERED: ZOLPIDEM TARTRATE 10 MG TABLET PO PRN (18:15)
[2018-05-15 19:09] VITALS: BP 135/94
[2018-05-15] MEDS ORDERED: PNEUMOCOCCAL VACCINE POLYVALENT 0.5 ML VIAL [PPSV23] IM ONE (19:15)
[2018-05-15] MEDS ORDERED: ACETAMINOPHEN 325 MG TABLET PO PRN (19:45)
[2018-05-15] MEDS ORDERED: GuaiFENesin/D-METHORPHAN [SUGAR-FREE] 200-20MG/10 ML SYRUP UDCUP PO PRN (19:45)
[2018-05-15] MEDS ORDERED: DOCUSATE SODIUM 100 MG CAPSULE PO PRN (19:45)
[2018-05-15] MEDS ORDERED: MAGNESIUM HYDROXIDE SUSPENSION 30 ML UDCUP PO PRN (19:45)
[2018-05-15] MEDS ORDERED: MAG HYDROX/AL HYDROX/SIMETH ES 30 ML SUSPENSION UDCUP PO PRN (19:45)
[2018-05-15] MEDS ORDERED: LOPERAMIDE HCL 2 MG CAPSULE PO PRN (19:45)
[2018-05-15] MEDS ORDERED: PETROLATUM,WHITE 71 GM JELLY TP PRN (19:45)
[2018-05-15] MEDS ORDERED: CloNIDine HCL 0.1 MG TABLET PO PRN (19:45)
[2018-05-15] MEDS ORDERED: IBUPROFEN 400 MG TABLET PO PRN (19:45)
[2018-05-15] MEDS ORDERED: ALBUTEROL SULFATE HFA 90 MCG/PUFF 8 GM INHALER IH PRN (19:45)
[2018-05-15] MEDS ORDERED: NICOTINE 14 MG/24 HOUR PATCH TD PRN (19:45)
[2018-05-15] MEDS ORDERED: ONDANSETRON HCL 4 MG TABLET PO PRN (19:45)
[2018-05-16 08:09] VITALS: BP 115/63
[2018-05-16] MEDS: OLANZapine 10 MG TABLET PO SCH ×2 (14:09→20:49)
[2018-05-16] MEDS: SERTRALINE HCL 50 MG TABLET PO SCH (14:09)
[2018-05-16 16:00] VITALS: BP 114/68
[2018-05-17 01:36] VITALS: BP 122/66
[2018-05-17 08:08] VITALS: BP 111/63
[2018-05-17] MEDS: OLANZapine 10 MG TABLET PO SCH ×2 (08:43→20:44)
[2018-05-17] MEDS: SERTRALINE HCL 50 MG TABLET PO SCH (08:43)
[2018-05-17] MEDS: LORazepam 2 MG TABLET PO PRN ×2 (10:17→17:12)
[2018-05-17 16:00] VITALS: BP 131/73
[2018-05-18 01:13] VITALS: BP 116/80
[2018-05-18 08:11] VITALS: BP 117/72
[2018-05-18] MEDS: SERTRALINE HCL 50 MG TABLET PO SCH (08:12)
[2018-05-18] MEDS: OLANZapine 10 MG TABLET PO SCH ×2 (08:12→19:59)
[2018-05-18 16:17] VITALS: BP 112/70
[2018-05-19 01:15] VITALS: BP 108/68
[2018-05-19 08:00] VITALS: BP 107/78
[2018-05-19] MEDS: OLANZapine 10 MG TABLET PO SCH (08:37)
[2018-05-19] MEDS: SERTRALINE HCL 50 MG TABLET PO SCH (08:37)
[2018-05-19] MEDS ORDERED: SERT50TA12 PO (08:39)
[2018-05-19] MEDS ORDERED: OLAN10TA20 PO (08:39)
== END 2018-05-19 14:40 | disposition home or self-care (01) | DRG 750 ==
LOC: B3A 18:42
DX: F25.1 Schizoaffective disorder, depressive type (principal); R45.851 Suicidal ideations; F15.20 Other stimulant dependence, uncomplicated; D64.9 Anemia, unspecified; J44.9 Chronic obstructive pulmonary disease, unspecified; F41.9 Anxiety disorder, unspecified; K21.9 Gastro-esophageal reflux disease without esophagitis; Z59.0 Homelessness; Z28.21 Immunization not carried out because of patient refusal; Z79.899 Other long term (current) drug therapy; Z91.5 Personal history of self-harm

== ENCOUNTER 2018-05-21 20:46 | Inpatient (IN) | payer MEDICAID ==
[~2018-05-21] VITALS: Ht 185.4 cm; Wt 80.6 kg
[2018-05-21] MEDS ORDERED: LORazepam 2 MG TABLET PO PRN (21:15)
[2018-05-21] MEDS ORDERED: ZOLPIDEM TARTRATE 10 MG TABLET PO PRN (21:15)
[2018-05-21] MEDS ORDERED: HALOPERIDOL 5 MG TABLET PO PRN (21:15)
[2018-05-21 21:24] VITALS: BP 145/90
[2018-05-21] MEDS ORDERED: PNEUMOCOCCAL VACCINE POLYVALENT 0.5 ML VIAL [PPSV23] IM ONE (22:30)
[2018-05-22 00:07] VITALS: BP 135/90
[2018-05-22] MEDS ORDERED: CloNIDine HCL 0.1 MG TABLET PO PRN (06:30)
[2018-05-22] MEDS ORDERED: GuaiFENesin/D-METHORPHAN [SUGAR-FREE] 200-20MG/10 ML SYRUP UDCUP PO PRN (06:30)
[2018-05-22] MEDS ORDERED: ONDANSETRON HCL 4 MG TABLET PO PRN (06:30)
[2018-05-22] MEDS ORDERED: DOCUSATE SODIUM 100 MG CAPSULE PO PRN (06:30)
[2018-05-22] MEDS ORDERED: ACETAMINOPHEN 325 MG TABLET PO PRN (06:30)
[2018-05-22] MEDS ORDERED: NICOTINE 14 MG/24 HOUR PATCH TD PRN (06:30)
[2018-05-22] MEDS ORDERED: PETROLATUM,WHITE 71 GM JELLY TP PRN (06:30)
[2018-05-22] MEDS ORDERED: LOPERAMIDE HCL 2 MG CAPSULE PO PRN (06:30)
[2018-05-22] MEDS ORDERED: ALBUTEROL SULFATE HFA 90 MCG/PUFF 8 GM INHALER IH PRN (06:30)
[2018-05-22] MEDS ORDERED: MAGNESIUM HYDROXIDE SUSPENSION 30 ML UDCUP PO PRN (06:30)
[2018-05-22] MEDS ORDERED: IBUPROFEN 400 MG TABLET PO PRN (06:30)
[2018-05-22] MEDS ORDERED: MAG HYDROX/AL HYDROX/SIMETH ES 30 ML SUSPENSION UDCUP PO PRN (06:30)
[2018-05-22] MEDS: SERTRALINE HCL 50 MG TABLET PO SCH (08:26)
[2018-05-22] MEDS ORDERED: OLANZapine 10 MG TABLET PO SCH (09:00)
[2018-05-22] MEDS: OLANZapine 10 MG TABLET PO SCH (20:10)
[2018-05-23 05:35] VITALS: BP 133/92
[2018-05-23 08:00] VITALS: BP 106/64
[2018-05-23] MEDS: SERTRALINE HCL 50 MG TABLET PO SCH (08:23)
[2018-05-23] MEDS ORDERED: SERTRALINE HCL 50 MG TABLET PO SCH (09:00)
[2018-05-23 16:00] VITALS: BP 123/72
[2018-05-23] MEDS: OLANZapine 10 MG TABLET PO SCH (20:54)
[2018-05-24 05:56] VITALS: BP 112/78
[2018-05-24] MEDS: SERTRALINE HCL 50 MG TABLET PO SCH (09:37)
[2018-05-24] MEDS: OLANZapine 10 MG TABLET PO SCH (20:51)
[2018-05-25 05:57] VITALS: BP 116/78
[2018-05-25] MEDS: SERTRALINE HCL 50 MG TABLET PO SCH ×2 (08:30→08:35)
[2018-05-25 17:19] VITALS: BP 114/62
[2018-05-25] MEDS: OLANZapine 10 MG TABLET PO SCH (20:20)
[2018-05-26 05:45] VITALS: BP 116/64
[2018-05-26 08:19] VITALS: BP 141/86
[2018-05-26 08:48] LABS: BASOPHILS % (AUTO) 0.7 % (0.0-2.0); EOSINOPHILS % (AUTO) 1.9 % (1.0-6.0); HEMATOCRIT 44.4 % (41-53); HEMOGLOBIN 15.4 g/dL (13.5-17.5); LYMPHOCYTES # (AUTO) 1.5 K/uL (1.0-4.8); LYMPHOCYTES % (AUTO) 31.5 % (22.0-44.0); MEAN CORPUSCULAR HEMOGLOBIN 30.7 pg (26.0-34.0); MEAN CORPUSCULAR HGB CONC 34.7 G/dL (31.0-37.0); MEAN CORPUSCULAR VOLUME 89 fL (80-100); MONOCYTES # (AUTO) 0.5 K/uL (0.1-1.0); MONOCYTES % (AUTO) 9.7 % (2.0-9.0); NEUTROPHILS # (AUTO) 2.7 K/uL (1.8-7.7); NEUTROPHILS % (AUTO) 56.2 % (40.0-70.0); PLATELET COUNT (AUTO) 167 K/uL (150-450); RED BLOOD CELL COUNT(AUTO) 5.02 MIL/uL (4.50-5.90); RED CELL DISTRIBUTION WIDTH 13.5 % (11.5-14.5)
[2018-05-26 09:00] LABS: HEMOGLOBIN A1C 5.7 % (4.5-6.2)
[2018-05-26 10:28] LABS: ALANINE AMINOTRANSFERASE 33 U/L (12-78); ALBUMIN 3.6 g/dL (3.4-5.0); ALKALINE PHOSPHATASE 83 U/L (46-116); ANION GAP 5 mmol/L (8-16); ASPARTATE AMINOTRANSFERASE 23 U/L (15-37); BILIRUBIN,TOTAL 0.4 mg/dL (0.1-1.0); CALCIUM, TOTAL 8.9 mg/dL (8.8-10.5); CARBON DIOXIDE 31 mmol/L (22-29); CHLORIDE 102 mmol/L (98-107); CHOL/HDL RATIO 3.6 (4.2-7.3); CHOLESTEROL 210 mg/dL (131-200); CREATININE 1.19 mg/dL (0.60-1.30); FREE T4 (FREE THYROXINE) 0.74 ng/dL (0.76-1.46); GLOMERULAR FILTR. RATE CALC > 60 mL/min (>60); GLUCOSE,RANDOM 84 mg/dL (70-110); HDL CHOLESTEROL 58 mg/dL (40-60); LDL CHOL (CALC.) 130 mg/dL (0-130); POTASSIUM 4.2 mmol/L (3.5-5.1); SODIUM SERUM 138 mmol/L (136-145); TOTAL PROTEIN, SERUM 7.7 g/dL (6.4-8.2); TRIGLYCERIDES 108 mg/dL (15-150)
[2018-05-26] MEDS: SERTRALINE HCL 50 MG TABLET PO SCH (11:23)
[2018-05-26 12:05] LABS: UREA NITROGEN, BLOOD 12 mg/dL (7-18)
[2018-05-26 16:14] VITALS: BP 111/68
[2018-05-26] MEDS: OLANZapine 10 MG TABLET PO SCH (21:01)
[2018-05-27 01:23] VITALS: BP 106/69
[2018-05-27 08:08] VITALS: BP 122/60
[2018-05-27] MEDS: SERTRALINE HCL 50 MG TABLET PO SCH (08:36)
[2018-05-27] MEDS ORDERED: OLAN10TA3 PO (10:09)
== END 2018-05-27 11:15 | disposition home or self-care (01) | DRG 750 ==
LOC: B2S 21:12
PROVIDERS: ADMIT Psychiatry & Neurology Psychiatry
DX: F20.0 Paranoid schizophrenia (principal); D64.9 Anemia, unspecified; F19.90 Other psychoactive substance use, unspecified, uncomplicated; G47.00 Insomnia, unspecified; J44.9 Chronic obstructive pulmonary disease, unspecified; R45.87 Impulsiveness; K21.9 Gastro-esophageal reflux disease without esophagitis; Z28.21 Immunization not carried out because of patient refusal
CPT/HCPCS: 83036; 84439; 84443; 90686; 90732

== ENCOUNTER 2018-06-03 18:37 | Inpatient (IN) | payer MEDICAID ==
[~2018-06-03] VITALS: Ht 185.4 cm; Wt 77.6 kg
[~2018-06-03 18:37] MED LIST changes: -OLAN10TA20 PO; +OLAN10TA3 PO
[2018-06-03 19:44] VITALS: BP 140/95
[2018-06-03] MEDS ORDERED: LORazepam 2 MG TABLET PO PRN (19:45)
[2018-06-03] MEDS ORDERED: ZOLPIDEM TARTRATE 10 MG TABLET PO PRN (19:45)
[2018-06-03] MEDS ORDERED: HALOPERIDOL 5 MG TABLET PO PRN (19:45)
[2018-06-03 20:28] VITALS: BP 135/87
[2018-06-03] MEDS ORDERED: PNEUMOCOCCAL VACCINE POLYVALENT 0.5 ML VIAL [PPSV23] IM ONE (20:30)
[2018-06-03] MEDS ORDERED: MAGNESIUM HYDROXIDE SUSPENSION 30 ML UDCUP PO PRN (20:45)
[2018-06-03] MEDS ORDERED: CloNIDine HCL 0.1 MG TABLET PO PRN (20:45)
[2018-06-03] MEDS ORDERED: PETROLATUM,WHITE 71 GM JELLY TP PRN (20:45)
[2018-06-03] MEDS ORDERED: IBUPROFEN 400 MG TABLET PO PRN (20:45)
[2018-06-03] MEDS ORDERED: NICOTINE 14 MG/24 HOUR PATCH TD PRN (20:45)
[2018-06-03] MEDS ORDERED: MAG HYDROX/AL HYDROX/SIMETH ES 30 ML SUSPENSION UDCUP PO PRN (20:45)
[2018-06-03] MEDS ORDERED: ALBUTEROL SULFATE HFA 90 MCG/PUFF 8 GM INHALER IH PRN (20:45)
[2018-06-03] MEDS ORDERED: DOCUSATE SODIUM 100 MG CAPSULE PO PRN (20:45)
[2018-06-03] MEDS ORDERED: LOPERAMIDE HCL 2 MG CAPSULE PO PRN (20:45)
[2018-06-03] MEDS ORDERED: GuaiFENesin/D-METHORPHAN [SUGAR-FREE] 200-20MG/10 ML SYRUP UDCUP PO PRN (20:45)
[2018-06-03] MEDS ORDERED: ONDANSETRON HCL 4 MG TABLET PO PRN (20:45)
[2018-06-03] MEDS ORDERED: ACETAMINOPHEN 325 MG TABLET PO PRN (20:45)
[2018-06-04 00:55] VITALS: BP 126/81
[2018-06-04 08:23] VITALS: BP 134/79
[2018-06-04 16:09] VITALS: BP 120/68
[2018-06-04] MEDS: OLANZapine 10 MG TABLET PO SCH (20:11)
[2018-06-05 05:44] VITALS: BP 120/71
[2018-06-05 08:07] VITALS: BP 102/66
[2018-06-05] MEDS: SERTRALINE HCL 50 MG TABLET PO SCH (08:32)
[2018-06-05 16:21] VITALS: BP 106/60
[2018-06-05] MEDS: OLANZapine 10 MG TABLET PO SCH (20:23)
[2018-06-06 07:11] VITALS: BP 116/75
[2018-06-06 08:04] VITALS: BP 103/60
[2018-06-06] MEDS: SERTRALINE HCL 50 MG TABLET PO SCH (08:40)
[2018-06-06 16:20] VITALS: BP 120/66
[2018-06-06] MEDS: OLANZapine 10 MG TABLET PO SCH (20:33)
[2018-06-07 06:29] VITALS: BP 110/68
[2018-06-07 06:33] VITALS: BP 119/70
[2018-06-07 08:13] VITALS: BP 121/60
[2018-06-07] MEDS: SERTRALINE HCL 50 MG TABLET PO SCH (08:25)
[2018-06-07 16:07] VITALS: BP 113/72
[2018-06-07] MEDS: OLANZapine 10 MG TABLET PO SCH (20:23)
[2018-06-08 00:40] VITALS: BP 124/68
[2018-06-08 08:36] VITALS: BP 148/82
[2018-06-08] MEDS: SERTRALINE HCL 50 MG TABLET PO SCH (09:23)
[2018-06-08 16:21] VITALS: BP 107/68
[2018-06-08] MEDS: OLANZapine 10 MG TABLET PO SCH (21:34)
[2018-06-09 01:13] VITALS: BP 102/62
[2018-06-09] MEDS: SERTRALINE HCL 50 MG TABLET PO SCH (08:28)
[2018-06-09] MEDS ORDERED: OLAN10TA20 PO (10:11)
[2018-06-09] MEDS ORDERED: SERT50TA12 PO (10:11)
== END 2018-06-09 11:55 | disposition home or self-care (01) | DRG 750 ==
LOC: B2S 19:36
DX: F25.1 Schizoaffective disorder, depressive type (principal); F15.20 Other stimulant dependence, uncomplicated; R45.851 Suicidal ideations; D64.9 Anemia, unspecified; J44.9 Chronic obstructive pulmonary disease, unspecified; E03.9 Hypothyroidism, unspecified; E78.5 Hyperlipidemia, unspecified; F12.10 Cannabis abuse, uncomplicated; F41.9 Anxiety disorder, unspecified; K21.9 Gastro-esophageal reflux disease without esophagitis; Z79.899 Other long term (current) drug therapy; Z91.14 Patient's other noncompliance with medication regimen; Z28.21 Immunization not carried out because of patient refusal; Z71.51 Drug abuse counseling and surveillance of drug abuser; Z71.41 Alcohol abuse counseling and surveillance of alcoholic; Z79.890 Hormone replacement therapy; Z59.0 Homelessness
CPT/HCPCS: 87081

== ENCOUNTER 2018-06-11 08:48 | Inpatient (IN) | payer MEDICAID ==
[~2018-06-11] VITALS: Ht 185.4 cm; Wt 83.5 kg
[~2018-06-11 08:48] MED LIST changes: +OLAN10TA20 PO
[2018-06-11 12:23] VITALS: BP 120/79
[2018-06-11] MEDS ORDERED: HALOPERIDOL 5 MG TABLET PO PRN (12:30)
[2018-06-11] MEDS ORDERED: ZOLPIDEM TARTRATE 10 MG TABLET PO PRN (12:30)
[2018-06-11] MEDS ORDERED: LORazepam 2 MG TABLET PO PRN (12:30)
[2018-06-11] MEDS ORDERED: SERT50TA12 PO (12:36)
[2018-06-11] MEDS ORDERED: PNEUMOCOCCAL VACCINE POLYVALENT 0.5 ML VIAL [PPSV23] IM ONE (13:30)
[2018-06-11] MEDS ORDERED: PETROLATUM,WHITE 71 GM JELLY TP PRN (14:45)
[2018-06-11] MEDS ORDERED: DOCUSATE SODIUM 100 MG CAPSULE PO PRN (14:45)
[2018-06-11] MEDS ORDERED: ACETAMINOPHEN 325 MG TABLET PO PRN (14:45)
[2018-06-11] MEDS ORDERED: GuaiFENesin/D-METHORPHAN [SUGAR-FREE] 200-20MG/10 ML SYRUP UDCUP PO PRN (14:45)
[2018-06-11] MEDS ORDERED: LOPERAMIDE HCL 2 MG CAPSULE PO PRN (14:45)
[2018-06-11] MEDS ORDERED: NICOTINE 14 MG/24 HOUR PATCH TD PRN (14:45)
[2018-06-11] MEDS ORDERED: MAGNESIUM HYDROXIDE SUSPENSION 30 ML UDCUP PO PRN (14:45)
[2018-06-11] MEDS ORDERED: IBUPROFEN 400 MG TABLET PO PRN (14:45)
[2018-06-11] MEDS ORDERED: CloNIDine HCL 0.1 MG TABLET PO PRN (14:45)
[2018-06-11] MEDS ORDERED: ALBUTEROL SULFATE HFA 90 MCG/PUFF 8 GM INHALER IH PRN (14:45)
[2018-06-11] MEDS ORDERED: ONDANSETRON HCL 4 MG TABLET PO PRN (14:45)
[2018-06-11 16:44] VITALS: BP 118/60
[2018-06-11] MEDS: OLANZapine 10 MG TABLET PO SCH (21:14)
[2018-06-12 08:12] VITALS: BP 104/62
[2018-06-12] MEDS: SERTRALINE HCL 50 MG TABLET PO SCH (08:13)
[2018-06-12 16:00] VITALS: BP 123/84
[2018-06-12] MEDS: OLANZapine 10 MG TABLET PO SCH (20:15)
[2018-06-13 00:39] VITALS: BP 122/80
[2018-06-13 08:19] VITALS: BP 105/62
[2018-06-13] MEDS: SERTRALINE HCL 50 MG TABLET PO SCH (08:21)
[2018-06-13 15:57] VITALS: BP 100/61
[2018-06-13 17:28] VITALS: BP 100/61
[2018-06-13] MEDS: OLANZapine 10 MG TABLET PO SCH (20:09)
[2018-06-14 00:07] VITALS: BP 112/79
[2018-06-14 08:06] VITALS: BP 124/78
[2018-06-14] MEDS: SERTRALINE HCL 50 MG TABLET PO SCH ×3 (08:59→10:43)
[2018-06-14 16:22] VITALS: BP 117/67
[2018-06-14] MEDS: OLANZapine 10 MG TABLET PO SCH (20:09)
[2018-06-15 04:35] VITALS: BP 118/72
[2018-06-15 08:00] VITALS: BP 121/82
[2018-06-15] MEDS: SERTRALINE HCL 50 MG TABLET PO SCH (08:20)
[2018-06-15 17:56] VITALS: BP 132/61
[2018-06-15] MEDS: OLANZapine 10 MG TABLET PO SCH (20:55)
[2018-06-16 00:27] VITALS: BP 124/74
[2018-06-16 08:14] VITALS: BP 115/61
[2018-06-16] MEDS: SERTRALINE HCL 50 MG TABLET PO SCH (09:19)
[2018-06-16] MEDS ORDERED: OLAN10TA20 PO (11:07)
[2018-06-16] MEDS ORDERED: SERT50TA12 PO (11:07)
== END 2018-06-16 12:45 | disposition home or self-care (01) | DRG 750 ==
LOC: B2S 12:23
DX: F25.1 Schizoaffective disorder, depressive type (principal); R45.851 Suicidal ideations; D64.9 Anemia, unspecified; J44.9 Chronic obstructive pulmonary disease, unspecified; K21.9 Gastro-esophageal reflux disease without esophagitis; F12.10 Cannabis abuse, uncomplicated; E03.9 Hypothyroidism, unspecified; E78.5 Hyperlipidemia, unspecified; F10.10 Alcohol abuse, uncomplicated; F41.9 Anxiety disorder, unspecified; Z79.899 Other long term (current) drug therapy; Z28.21 Immunization not carried out because of patient refusal; F19.10 Other psychoactive substance abuse, uncomplicated; Z71.41 Alcohol abuse counseling and surveillance of alcoholic; Z71.51 Drug abuse counseling and surveillance of drug abuser
CPT/HCPCS: 87081; 90686

== ENCOUNTER 2019-03-10 00:51 | Inpatient (IN) | payer MEDICAID ==
[~2019-03-10] VITALS: Ht 185.4 cm; Wt 77.1 kg
[~2019-03-10 00:51] MED LIST changes: -OLAN10TA3 PO
[2019-03-10] MEDS ORDERED: HALOPERIDOL 5 MG TABLET PO PRN (09:00)
[2019-03-10 09:23] VITALS: BP 108/71
[2019-03-10 09:50] VITALS: BP 112/77
[2019-03-10] MEDS ORDERED: ONDANSETRON HCL 4 MG TABLET PO PRN (10:00)
[2019-03-10] MEDS ORDERED: CloNIDine HCL 0.1 MG TABLET PO PRN (10:00)
[2019-03-10] MEDS ORDERED: IBUPROFEN 400 MG TABLET PO PRN (10:00)
[2019-03-10] MEDS ORDERED: LOPERAMIDE HCL 2 MG CAPSULE PO PRN (10:00)
[2019-03-10] MEDS ORDERED: MAGNESIUM HYDROXIDE SUSPENSION 30 ML UDCUP PO PRN (10:00)
[2019-03-10] MEDS ORDERED: DOCUSATE SODIUM 100 MG CAPSULE PO PRN (10:00)
[2019-03-10] MEDS ORDERED: MAG HYDROX/AL HYDROX/SIMETH ES 30 ML SUSPENSION UDCUP PO PRN (10:00)
[2019-03-10] MEDS ORDERED: PETROLATUM,WHITE 28 GM JELLY TP PRN (10:00)
[2019-03-10] MEDS ORDERED: ALBUTEROL SULFATE HFA 90 MCG/PUFF 8 GM INHALER IH PRN (10:00)
[2019-03-10] MEDS ORDERED: NICOTINE 14 MG/24 HOUR PATCH TD PRN (10:00)
[2019-03-10] MEDS ORDERED: GuaiFENesin/D-METHORPHAN [SUGAR-FREE] 200-20MG/10 ML SYRUP UDCUP PO PRN (10:00)
[2019-03-10] MEDS ORDERED: ACETAMINOPHEN 325 MG TABLET PO PRN (10:00)
[2019-03-10] MEDS ORDERED: SERT50TA12 PO (10:11)
[2019-03-10] MEDS ORDERED: OLAN10TA3 PO (10:11)
[2019-03-10] MEDS ORDERED: PNEUMOCOCCAL VACCINE POLYVALENT 0.5 ML VIAL [PPSV23] IM ONE (13:00)
[2019-03-10 16:00] VITALS: BP 116/74
[2019-03-10] MEDS: ZOLPIDEM TARTRATE 10 MG TABLET PO PRN (20:30)
[2019-03-10] MEDS: OLANZapine 10 MG TABLET PO SCH (20:30)
[2019-03-11 06:19] VITALS: BP 110/72
[2019-03-11] MEDS: SERTRALINE HCL 50 MG TABLET PO SCH (08:16)
[2019-03-11 16:00] VITALS: BP 108/67
[2019-03-11] MEDS: LORazepam 2 MG TABLET PO PRN (20:15)
[2019-03-11] MEDS: OLANZapine 10 MG TABLET PO SCH (20:15)
[2019-03-12 06:16] VITALS: BP 114/71
[2019-03-12 08:07] VITALS: BP 110/61
[2019-03-12] MEDS: SERTRALINE HCL 50 MG TABLET PO SCH (09:16)
[2019-03-12] MEDS: LORazepam 2 MG TABLET PO PRN ×2 (09:16→16:58)
[2019-03-12 16:25] VITALS: BP 109/62
[2019-03-12] MEDS: OLANZapine 10 MG TABLET PO SCH (20:43)
[2019-03-12] MEDS: ZOLPIDEM TARTRATE 10 MG TABLET PO PRN (20:43)
[2019-03-13] MEDS: SERTRALINE HCL 50 MG TABLET PO SCH (09:00)
[2019-03-13] MEDS ORDERED: OLAN10TA20 PO (09:21)
[2019-03-13] MEDS ORDERED: SERT50TA12 PO ×2 (09:21→10:13)
[2019-03-13] MEDS ORDERED: OLAN20TA20 PO (10:13)
== END 2019-03-13 11:45 | disposition home or self-care (01) | DRG 750 ==
LOC: B3A 08:54
DX: F25.1 Schizoaffective disorder, depressive type (principal); R45.851 Suicidal ideations; Z59.0 Homelessness; Z28.21 Immunization not carried out because of patient refusal; E03.9 Hypothyroidism, unspecified; E78.5 Hyperlipidemia, unspecified; I10 Essential (primary) hypertension; J44.9 Chronic obstructive pulmonary disease, unspecified; Z79.899 Other long term (current) drug therapy; F41.9 Anxiety disorder, unspecified; F19.10 Other psychoactive substance abuse, uncomplicated
CPT/HCPCS: 90732

== ENCOUNTER 2019-05-15 06:05 | Inpatient (IN) | payer MEDICAID ==
[~2019-05-15] VITALS: Ht 185.4 cm; Wt 76.9 kg
[~2019-05-15 06:05] MED LIST changes: +OLAN10TA3 PO; +OLAN20TA20 PO
[2019-05-15] MEDS ORDERED: HALOPERIDOL 5 MG TABLET PO PRN (09:00)
[2019-05-15] MEDS ORDERED: ZOLPIDEM TARTRATE 10 MG TABLET PO PRN (09:00)
[2019-05-15] MEDS ORDERED: LORazepam 2 MG TABLET PO PRN (09:00)
[2019-05-15 14:10] VITALS: BP 128/81
[2019-05-15] MEDS ORDERED: NICOTINE 14 MG/24 HOUR PATCH TD PRN (22:00)
[2019-05-15] MEDS ORDERED: LOPERAMIDE HCL 2 MG CAPSULE PO PRN (22:00)
[2019-05-15] MEDS ORDERED: CloNIDine HCL 0.1 MG TABLET PO PRN (22:00)
[2019-05-15] MEDS ORDERED: MAGNESIUM HYDROXIDE SUSPENSION 30 ML UDCUP PO PRN (22:00)
[2019-05-15] MEDS ORDERED: ALBUTEROL SULFATE HFA 90 MCG/PUFF 8 GM INHALER IH PRN (22:00)
[2019-05-15] MEDS ORDERED: PETROLATUM,WHITE 28 GM JELLY TP PRN (22:00)
[2019-05-15] MEDS ORDERED: IBUPROFEN 400 MG TABLET PO PRN (22:00)
[2019-05-15] MEDS ORDERED: ACETAMINOPHEN 325 MG TABLET PO PRN (22:00)
[2019-05-15] MEDS ORDERED: GuaiFENesin/D-METHORPHAN [SUGAR-FREE] 200-20MG/10 ML SYRUP UDCUP PO PRN (22:00)
[2019-05-15] MEDS ORDERED: ONDANSETRON HCL 4 MG TABLET PO PRN (22:00)
[2019-05-15] MEDS ORDERED: MAG HYDROX/AL HYDROX/SIMETH ES 30 ML SUSPENSION UDCUP PO PRN (22:00)
[2019-05-15] MEDS ORDERED: DOCUSATE SODIUM 100 MG CAPSULE PO PRN (22:00)
[2019-05-16 09:39] VITALS: BP 113/70
[2019-05-16] MEDS: SERTRALINE HCL 50 MG TABLET PO SCH (12:04)
[2019-05-16 16:45] VITALS: BP 119/78
[2019-05-16] MEDS: OLANZapine 10 MG TABLET PO SCH (20:33)
[2019-05-17] MEDS: SERTRALINE HCL 50 MG TABLET PO SCH (08:50)
[2019-05-17 09:33] VITALS: BP 131/94
[2019-05-17 16:00] VITALS: BP 105/63
[2019-05-17] MEDS: OLANZapine 10 MG TABLET PO SCH (20:30)
[2019-05-18 08:10] VITALS: BP 132/77
[2019-05-18] MEDS: SERTRALINE HCL 50 MG TABLET PO SCH (09:05)
[2019-05-18] MEDS ORDERED: OLAN10TA20 PO (13:22)
[2019-05-18] MEDS ORDERED: SERT50TA12 PO (13:22)
== END 2019-05-18 15:20 | disposition home or self-care (01) | DRG 750 ==
LOC: EMS 06:07 → 3EC 12:46
DX: F25.1 Schizoaffective disorder, depressive type (principal); R45.851 Suicidal ideations; Z59.0 Homelessness; E03.9 Hypothyroidism, unspecified; I10 Essential (primary) hypertension; J44.9 Chronic obstructive pulmonary disease, unspecified; E78.5 Hyperlipidemia, unspecified; F10.10 Alcohol abuse, uncomplicated; F15.90 Other stimulant use, unspecified, uncomplicated; F17.210 Nicotine dependence, cigarettes, uncomplicated; Z79.899 Other long term (current) drug therapy

== ENCOUNTER 2020-06-09 03:04 | Emergency (ER) | payer MEDICAID ==
[~2020-06-09] VITALS: Ht 185.4 cm; Wt 86.4 kg
[~2020-06-09 03:04] MED LIST changes: -OLAN10TA3 PO; -OLAN20TA20 PO
[2020-06-09 04:19] LABS: EOSINOPHILS % (AUTO) 2.1 % (1.0-6.0); HEMATOCRIT 39.7 % (41-53); HEMOGLOBIN 13.2 g/dL (13.5-17.5); LYMPHOCYTES # (AUTO) 1.5 K/uL (1.0-4.8); LYMPHOCYTES % (AUTO) 26.1 % (22.0-44.0); MEAN CORPUSCULAR HEMOGLOBIN 29.9 pg (26.0-34.0); MEAN CORPUSCULAR HGB CONC 33.2 G/dL (31.0-37.0); MEAN CORPUSCULAR VOLUME 90 fL (80-100); MONOCYTES # (AUTO) 0.3 K/uL (0.1-1.0); MONOCYTES % (AUTO) 5.9 % (2.0-9.0); NEUTROPHILS # (AUTO) 3.9 K/uL (1.8-7.7); NEUTROPHILS % (AUTO) 64.9 % (40.0-70.0); PLATELET COUNT (AUTO) 182 K/uL (150-450); RED CELL DISTRIBUTION WIDTH 13.3 % (11.5-14.5)
[2020-06-09 04:30] LABS: ANION GAP 5 mmol/L (8-16); CALCIUM, TOTAL 9.3 mg/dL (8.8-10.5); CARBON DIOXIDE 29 mmol/L (22-29); CHLORIDE 103 mmol/L (98-107); CREATININE 1.14 mg/dL (0.60-1.30); GLOMERULAR FILTR. RATE CALC > 60 mL/min (>60); GLUCOSE,RANDOM 94 mg/dL (70-110); POTASSIUM 3.7 mmol/L (3.5-5.1); SODIUM SERUM 137 mmol/L (136-145); UREA NITROGEN, BLOOD 9 mg/dL (7-18)
[2020-06-09 04:32] LABS: GLUCOSE,POINT OF CARE 79 MG/DL (70-110)
[2020-06-09 04:36] LABS: ALANINE AMINOTRANSFERASE 28 U/L (12-78); ALBUMIN 3.8 g/dL (3.4-5.0); ALKALINE PHOSPHATASE 72 U/L (46-116); ASPARTATE AMINOTRANSFERASE 30 U/L (15-37); BILIRUBIN,TOTAL 0.4 mg/dL (0.1-1.0); LIPASE 78 U/L (73-393); TOTAL PROTEIN, SERUM 7.2 g/dL (6.4-8.2)
[2020-06-09 06:16] VITALS: BP 111/59
== END 2020-06-09 06:28 | disposition home or self-care (01) ==
LOC: EMS 03:04
DX: S27.809A Unspecified injury of diaphragm, initial encounter (principal); R20.2 Paresthesia of skin; F17.210 Nicotine dependence, cigarettes, uncomplicated; F12.90 Cannabis use, unspecified, uncomplicated; F19.90 Other psychoactive substance use, unspecified, uncomplicated; X58.XXXA Exposure to other specified factors, initial encounter; Y93.89 Activity, other specified; Y92.89 Other specified places as the place of occurrence of the external cause; Y99.8 Other external cause status
CPT/HCPCS: 74177

== ENCOUNTER 2021-06-10 22:27 | Inpatient (IN) | payer MEDICAID ==
[~2021-06-10 22:27] MED LIST changes: +OLAN10 PO; -OLAN10TA20 PO; +SERT-158 PO; +SERT-439 PO; -SERT50TA12 PO
[2021-06-11 03:46] LABS: GLUCOMETER DEV NAME(LOC) POC.BV
[2021-06-11] MEDS ORDERED: ZOLPIDEM TARTRATE 10 MG TABLET PO PRN (05:45)
[2021-06-11] MEDS ORDERED: HALOPERIDOL 5 MG TABLET PO PRN (05:45)
[2021-06-11] MEDS ORDERED: LORazepam 2 MG TABLET PO PRN (05:45)
[2021-06-11] MEDS ORDERED: INFLUENZA VIRUS VACCINE QVS 2021-22 (6MO+)/PF 60 MCG/0.5 ML SYRINGE IM. ONE (07:00)
[2021-06-11 08:13] VITALS: BP 138/83
[2021-06-11] MEDS ORDERED: ALBUTEROL SULFATE HFA 90 MCG/PUFF 8 GM INHALER IH PRN (10:30)
[2021-06-11] MEDS ORDERED: NICOTINE 14 MG/24 HOUR PATCH TD PRN (10:30)
[2021-06-11] MEDS ORDERED: LOPERAMIDE HCL 2 MG CAPSULE PO PRN (10:30)
[2021-06-11] MEDS ORDERED: ONDANSETRON HCL 4 MG TABLET PO PRN (10:30)
[2021-06-11] MEDS ORDERED: GuaiFENesin/D-METHORPHAN [SUGAR-FREE] 200-20MG/10 ML SYRUP UDCUP PO PRN (10:30)
[2021-06-11] MEDS ORDERED: CloNIDine HCL 0.1 MG TABLET PO PRN (10:30)
[2021-06-11] MEDS ORDERED: DOCUSATE SODIUM 100 MG CAPSULE PO PRN (10:30)
[2021-06-11] MEDS ORDERED: IBUPROFEN 400 MG TABLET PO PRN (10:30)
[2021-06-11] MEDS ORDERED: MAGNESIUM HYDROXIDE SUSPENSION 30 ML UDCUP PO PRN (10:30)
[2021-06-11] MEDS ORDERED: MAG HYDROX/AL HYDROX/SIMETH ES 30 ML SUSPENSION UDCUP PO PRN (10:30)
[2021-06-11] MEDS ORDERED: PETROLATUM,WHITE 28 GM JELLY TP PRN (10:30)
[2021-06-11] MEDS: SERTRALINE HCL 50 MG TABLET PO SCH (13:07)
[2021-06-11] MEDS: OLANZapine 5 MG TABLET PO SCH (13:07)
[2021-06-11 16:15] VITALS: BP 131/82
[2021-06-11] MEDS: OLANZapine 10 MG TABLET PO SCH (20:53)
[2021-06-12 04:00] VITALS: BP 128/72
[2021-06-12 08:48] VITALS: BP 108/60
[2021-06-12] MEDS: SERTRALINE HCL 50 MG TABLET PO SCH (08:52)
[2021-06-12] MEDS: OLANZapine 5 MG TABLET PO SCH (08:52)
[2021-06-12] MEDS: ACETAMINOPHEN 325 MG TABLET PO PRN (08:52)
[2021-06-12] MEDS: OLANZapine 10 MG TABLET PO SCH (20:52)
[2021-06-13 06:03] VITALS: BP 113/63
[2021-06-13 08:01] VITALS: BP 105/59
[2021-06-13] MEDS: OLANZapine 5 MG TABLET PO SCH (08:23)
[2021-06-13] MEDS: SERTRALINE HCL 50 MG TABLET PO SCH (08:23)
[2021-06-13] MEDS: ACETAMINOPHEN 325 MG TABLET PO PRN (08:37)
[2021-06-13 16:13] VITALS: BP 115/62
[2021-06-13] MEDS: OLANZapine 10 MG TABLET PO SCH (20:27)
[2021-06-14 04:52] VITALS: BP 110/68
[2021-06-14 08:06] VITALS: BP 116/70
[2021-06-14] MEDS: SERTRALINE HCL 50 MG TABLET PO SCH (08:21)
[2021-06-14] MEDS: OLANZapine 5 MG TABLET PO SCH (08:21)
[2021-06-14 16:11] VITALS: BP 122/71
[2021-06-14] MEDS: OLANZapine 10 MG TABLET PO SCH (20:30)
[2021-06-15 04:23] VITALS: BP 118/78
[2021-06-15] MEDS: SERTRALINE HCL 50 MG TABLET PO SCH (08:18)
[2021-06-15] MEDS: OLANZapine 5 MG TABLET PO SCH (08:18)
[2021-06-15 09:00] VITALS: BP 114/72
[2021-06-15] MEDS ORDERED: OLAN5TAB52 PO (10:36)
== END 2021-06-15 13:10 | disposition home or self-care (01) | DRG 750 ==
LOC: B3A 06-11 05:00
PROVIDERS: ADMIT Psychiatry & Neurology Psychiatry; ATTEND Psychiatry & Neurology Psychiatry
DX: F25.0 Schizoaffective disorder, bipolar type (principal); R45.851 Suicidal ideations; E03.9 Hypothyroidism, unspecified; Z20.822 Contact with and (suspected) exposure to COVID-19; E78.5 Hyperlipidemia, unspecified; F12.90 Cannabis use, unspecified, uncomplicated; I10 Essential (primary) hypertension; J44.9 Chronic obstructive pulmonary disease, unspecified; Z79.899 Other long term (current) drug therapy
CPT/HCPCS: 90686; G0008; Z7610